=== PATIENT | male | born 1945 | race Caucasian/White ===

== ENCOUNTER 2018-03-11 05:47 | Inpatient (IN) | payer MEDICARE, OTHER ==
[~2018-03-11] VITALS: Ht 180.3 cm; Wt 93.0 kg
[2018-03-11] VITALS (10 sets, daily range): BP systolic 100–116; BP diastolic 55–75
[2018-03-11] MEDS ORDERED: BACITRACIN 50000 UNITS/VIAL ONE (06:49)
[2018-03-11] MEDS ORDERED: ANESTHESIA TRAY IN PYXIS 1 EA TRAY MC ONE (06:49)
[2018-03-11] MEDS ORDERED: BUPIVACAINE 0.5 % PF 150 MG/30 ML VIAL ONE (06:49)
[2018-03-11] MEDS ORDERED: BUPIVACAINE 0.25% 75 MG/30 ML VIAL ONE (07:09)
[2018-03-11] MEDS ORDERED: FENTANYL PF 250MCG/5ML AMPUL ONE (07:19)
[2018-03-11] MEDS ORDERED: FENTANYL PF 100MCG/2ML AMPUL ONE ×2 (07:19→10:33)
[2018-03-11] MEDS ORDERED: MIDAZOLAM HCL 2 MG/2ML VIAL ONE (07:20)
[2018-03-11] MEDS ORDERED: FAMOTIDINE/PF INJ 20 MG/2 ML VIAL IV ONE (07:21)
[2018-03-11] MEDS ORDERED: METOCLOPRAMIDE HCL 10 MG/2 ML VIAL ONE (07:21)
[2018-03-11] MEDS ORDERED: ROCURONIUM BROMIDE 50 MG/5 ML ONE (07:22)
[2018-03-11] MEDS ORDERED: TRANEXAMIC ACID 3,000 MG in SODIUM CHLORIDE IRRIG SOLUTION 70 ML IR ONE (08:00)
[2018-03-11] MEDS ORDERED: HYDROMORPHONE INJ 2 MG/ML DISP.SYRIN ONE (10:25)
[2018-03-11] MEDS ORDERED: KETOROLAC TROMETHAMINE INJ 30 MG/ML VIAL ONE (10:29)
[2018-03-11] MEDS ORDERED: BUPIVACAINE MPF 0.5% W/EPI INJ 30 ML VIAL ONE (11:24)
[2018-03-11] MEDS ORDERED: LIDOCAINE 1% INJ 50 ML MDV IJ ONE (11:36)
--- NOTE | 2018-03-11 12:00 | NUR ---
MS CLIENT RELATIONS REPRESENTATIVE NOTE RECEIVED PT FROM DAY SURGERY VIA [facility] [place]. PT IS S/P R TOTAL SHOULDER ARTHROPLASTY. PT IS ALERT AND ORIENTED X4, DENIES N/V, CHEST PAIN, SOB. RATES PAIN 5/10 IN THE RIGHT SHOULDER. NEUROVASCULAR STATUS INTACT. VS WNL, SCDS IN PLACE. ALL BELONGING ACCOUNTED FOR AND BELONGINGS LIST SIGNED AND PLACED IN CHART. IS AT THE BEDSIDE. ORIENTED PT AND TO UNIT AND USE OF THE CALL LIGHT, BOTH VERBALIZED UNDERSTANDING OF CALLING FOR ASSISTANCE PRIOR TO GETTING OUT OF BED. NOTIFIED DR. PEPE OF PT ADMISSION TO THE FLOOR.
[2018-03-11] MEDS ORDERED: SIMV80TA90 PO (13:29)
[2018-03-11] MEDS ORDERED: ASPI-1169 PO (13:29)
[2018-03-11] MEDS ORDERED: DICL100T2 PO (13:29)
[2018-03-11] MEDS ORDERED: BIOT5000 PO (13:29)
[2018-03-11] MEDS ORDERED: GLUC1TAB20 PO (13:29)
[2018-03-11] MEDS ORDERED: CHOL200026 PO (13:29)
[2018-03-11] MEDS ORDERED: OMEP40CA37 PO (13:29)
[2018-03-11] MEDS ORDERED: LORA1TAB PO (13:29)
[2018-03-11] MEDS ORDERED: SOLI10TA2 PO (13:29)
[2018-03-11] MEDS ORDERED: POTA15TA11 PO (13:29)
[2018-03-11] MEDS ORDERED: VIT1CAPS27 PO (13:29)
[2018-03-11] MEDS ORDERED: QUIN20TA18 PO (13:29)
[2018-03-11] MEDS ORDERED: FINA5TAB11 PO (13:29)
[2018-03-11] MEDS ORDERED: VENL75TA4 PO (13:29)
[2018-03-11] MEDS ORDERED: oxyCODONE/APAP (5/325 MG) 1 UDTAB TABLET PO PRN (13:30)
[2018-03-11] MEDS ORDERED: HYDROMORPHONE 1 MG/1 ML DISP.SYRIN IV PRN (13:30)
[2018-03-11] MEDS ORDERED: BIOT1000 PO (13:41)
[2018-03-11] MEDS ORDERED: HYDROCODONE/APAP 5/325MG 1 EACH TABLET PO PRN (15:00)
[2018-03-11] MEDS: OXYBUTYNIN CHLORIDE 5 MG TABLET PO SCH (17:17)
--- NOTE | 2018-03-11 18:50 | NUR ---
MS NAIDU MRSA SWAB MRSA SWAB OBTAINED, INFORMED MASTER AT THE LAB READY FOR CEILING CLEANER.
--- NOTE | 2018-03-11 18:59 | NUR ---
MS RN CLOSING NOTE PT SITTING UP IN BED, ALERT AND ORIENTED X4. DENIES N/V, CHEST PAIN, SOB. PT RATES PAIN 4/10 IN THE RIGHT SHOULDER AND TOLERABLE. BREATHING IS EVEN AND UNLABORED ON 2L NC. R FA #[id number] IV IS SALINE LOCKED, PATENT, AND WITHOUT REDNESS OR SWELLING NEUROVASCULAR STATUS INTACT, SLING AND SCDS IN PLACE. ALL NEEDS ATTENDED TO. IS AT THE BEDSIDE. BED IS LOCKED AND IN LOWEST POSITION, SIDE RAILS UP X2, BED ALARM ON, CALL LIGHT WITHIN REACH.
--- NOTE | 2018-03-11 19:15 | NUR ---
RN NOTES RECEIVED PT IN BED ON HIGH FOWLERS POSITION, AWAKE, ALERT AND ORIENTED X4. PT ON ROOM AIR AND TOLERATED WELL. RIGHT ARM ON A SLING WITH RIGHT SHOULDER PAIN AT 5/10 AND TOLERABLE AT THIS TIME. LEFT FOREARM IV ACCESS PATENT AND INTACT. SCD IN PLACE. KEPT COMFORTABLE AND ATTENDED. WILL CONTINUE TO MONITOR PT.
[2018-03-11] MEDS: HYDROCODONE/APAP 10/325MG 1 EA TABLET PO PRN (20:43)
--- NOTE | 2018-03-11 20:43 | NUR ---
RN NOTES PT COMPLAINS OF PAIN /10, NORCO 10/325 MG TAB GIVEN PO AND TOLERATED WELL.
[2018-03-11] MEDS: CLINDAMYCIN 900 MG in IV D5W 50 ML IV SCH (20:51)
--- NOTE | 2018-03-11 22:23 | NUR ---
RN NOTES PT VERBALIZED THAT PAIN ON HIS RIGHT SHOULDER WENT UP AGAIN TO 7/10, DILAUDID 0.5 MG GIVEN IVP FOR BTP GIVEN. WILL CONTINUE TO MONITOR PT.
[2018-03-12] MEDS ORDERED: Medication Not On Formulary EA (Melatonin 5 MG) PO PRN
--- NOTE | 2018-03-12 00:19 | NUR ---
RN NOTES PT IS VERBALIZING DIFFICULTY TO SLEEP, [employer] ADMINISTRATOR NOTIFIED WITH ORDER OF MELATONIN 5 MG. MELATONIN IS NOT AVAILABLE PER PHARMACIST. [employer] ADMINISTRATOR CHANGED IT TO AMBIEN 5 MG TAB PO AT HS PRN. GIVEN TO THE PATIENT PO AND TOLERATED WELL. WILL CONTINUE TO MONITOR.
[2018-03-12] MEDS ORDERED: ZOLPIDEM TARTRATE 5 MG TABLET PO PRN (00:30)
[2018-03-12] MEDS: HYDROCODONE/APAP 10/325MG 1 EA TABLET PO PRN (05:55)
--- NOTE | 2018-03-12 05:55 | NUR ---
RN NOTES PATIENT COMPLAINS OF PAIN ON HIS RIGHT SHOULDER 10/21, NORCO 5/325 MG TAB GIVEN PO. wILL CONTINUE TO MONITOR PT.
--- NOTE | 2018-03-12 07:30 | NUR ---
RN NOTES PATIENT SLEPT ON AND OFF LAST NIGHT. KEPT PAIN AT TOLERABLE LEVEL. vITAL SIGNS STABLE, AFEBRILE. kEPT RIGHT ARM ON A SLING AND COLD PACKS APPLIED. PATIENT INSTRUCTED NON WEIGHT BEARING ON RIGHT ARM AND VERBALIZED UNDERSTANDING. PT TOLERATED CURRENT DIET, NO EPISODE OF NAUSEA AND VOMITING, CURRENT DIET TOLERATED WELL. FALL PRECAUTION OBSERVED. ENDORSED TO MORNING RN FOR CONTINUITY OF CARE.
[2018-03-12 08:00] VITALS: BP 124/74
--- NOTE | 2018-03-12 08:00 | NUR ---
MS RN NOTES PATIENT AWAKE ON BED. KEPT PAIN AT TOLERABLE LEVEL. VITAL SIGNS STABLE, AFEBRILE. kEPT RIGHT ARM ON A SLING AND COLD PACKS APPLIED. PATIENT INSTRUCTED NON WEIGHT BEARING ON RIGHT ARM AND VERBALIZED UNDERSTANDING. PT TOLERATED CURRENT DIET, NO EPISODE OF NAUSEA AND VOMITING, CURRENT DIET TOLERATED WELL. FALL PRECAUTION OBSERVED. WILL CONTINUE TO MONITOR.
[2018-03-12] MEDS ORDERED: VENLAFAXINE 37.5 MG TABLET PO SCH (09:00)
[2018-03-12] MEDS ORDERED: ASPIRIN 81 MG TAB.CHEW PO SCH (09:00)
[2018-03-12] MEDS: OXYBUTYNIN CHLORIDE 5 MG TABLET PO SCH ×2 (09:00→13:00)
[2018-03-12] MEDS ORDERED: LORAZEPAM 1 MG TABLET PO SCH (09:00)
[2018-03-12] MEDS ORDERED: FINASTERIDE (5 MG) 5 MG TABLET PO SCH (09:00)
[2018-03-12] MEDS: CLINDAMYCIN 900 MG in IV D5W 50 ML IV SCH (09:45)
--- NOTE | 2018-03-12 12:00 | NUR ---
MS RN NOTES SEEN PATIENT AWAKE ON BED, AT THE BEDSIDE. PATIENT FOR DISCHARGE TODAY PER MD ORDERED. ORDERS NOTED AND CARRIED OUT.
--- NOTE | 2018-03-12 16:00 | NUR ---
MS RN CALLED PHARMACY DUE TO WE CANNOT WAIST ATIVAN 0.5MG HALF TB, BECAUSE PT PATIENT IS ALREADY REMOVED FROM THE PATIENT LIST, PATIENT HAS BEEN DISCHARGE 30 MINUTES AGO.
--- NOTE | 2018-03-12 16:50 | NUR ---
MS RN SPOKE W/ MARYAM, PHARMACIST,WAS ADVISED TO DOCUMENT IN NOTES.
== END 2018-03-12 15:28 | disposition home or self-care (01) | DRG 483 ==
LOC: DS 05:47 → MED 10:33
PROVIDERS: ADMIT Internal Medicine; ATTEND Internal Medicine
PROC: 0RRJ00Z Replacement of Right Shoulder Joint with Reverse Ball and Socket Synthetic Substitute, Open Approach (ICD-10-PCS; principal; 2018-03-11 07:30)
DX: M19.011 Primary osteoarthritis, right shoulder (principal); M75.101 Unspecified rotator cuff tear or rupture of right shoulder, not specified as traumatic; I10 Essential (primary) hypertension; K21.9 Gastro-esophageal reflux disease without esophagitis; E78.5 Hyperlipidemia, unspecified
CPT/HCPCS: 36415; 71045-TC; 73020; 86803; 86850-TC; 86921-TC; 87081-TC; 87340; 87806; 88305-TC; 88311-TC; A4217; A4565; A4606; A6402; G0378; J1170; J1885; J2250; J2405; J2710; J2765; J3010; J3490; J7050; J7060; J7120; Z7610